=== PATIENT | female | born 1995 | race Hispanic/Latino ===

== ENCOUNTER 2019-05-14 08:44 | Emergency (ER) | payer OTHER ==
[2019-05-14 09:38] LABS: Hematocrit 47.2 % (30.3-42.9); Hemoglobin 16.1 gm/dl (10.1-14.3); Mean Corpuscular HGB Conc 34 % (30-34); Mean Corpuscular Volume 88 fl (79-97); Platelet Count 203 K/mm3 (140-440); Red Blood Count 5.37 M/mm3 (3.65-5.03); Red Cell Distribution Width 14.5 % (13.2-15.2)
[2019-05-14 09:47] LABS: Amphetamine Screen,Urine PRESUMPTIVE NEGATIVE; Benzodiazepines Screen,Urine PRESUMPTIVE NEGATIVE; Cocaine Screen,Urine PRESUMPTIVE NEGATIVE; Methadone Screen,Urine PRESUMPTIVE NEGATIVE; Opiate Screen,Urine PRESUMPTIVE NEGATIVE
[2019-05-14 09:56] LABS: BUN/Creatinine Ratio 10; Blood Urea Nitrogen 7 mg/dL (7-17); Calcium 9.8 mg/dL (8.4-10.2); Hemolysis Index 9
[2019-05-14 10:06] LABS: Cannabinoid Screen,Urine PRESUMPTIVE POSITIVE
[2019-05-14] MEDS ORDERED: HALDOL IM PRN (10:37)
[2019-05-14] MEDS ORDERED: ATIVAN IM PRN (10:37)
[2019-05-14] MEDS ORDERED: PROVENTIL IH PRN (10:37)
[2019-05-14] MEDS ORDERED: ZOFRAN ODT PO PRN (10:37)
[2019-05-14] MEDS ORDERED: TYLENOL PO PRN (10:37)
--- NOTE | 2019-05-14 10:39 | Emergency Department Report ---
ED General Adult HPI - General Chief complaint: Psych Stated complaint: SI Time Seen by Provider: 05/14/19 08:55 Source: patient, EMS (EMS documentation not available at the time of chart dictation), RN notes reviewed Mode of arrival: Ambulatory Limitations: No Limitations - History of Present Illness Initial comments: This is a 24-year-old patient, genetically female but identifies as male, prefers to be called " max" with a past history of psychiatric disease, not currently on any psychiatric medications, presents to the ER with a complaint of suicidality. The patient denies physical pain. The patient states that he was considering driving his car into oncoming traffic. The patient denies overdose. The patient denies hallucinations. The patient's symptoms are constant, painless, do not radiate anywhere, and he does not endorse any exacerbating or relieving factors. Patient denies urinary symptoms or abdominal pain. Patient denies additional complaints at this time. Patient states that he would like to get some help for his thoughts of suicidality. -: Gradual Severity scale (0 -10): 0 Quality: other Consistency: other Improves with: other Worsens with: other - Related Data Allergies Allergy/AdvReac Type Severity Reaction Status Date / Time amoxicillin [From Augmentin] Allergy Unknown Verified 05/14/19 09:00 cephalexin [From Keflex] Allergy Unknown Verified 05/14/19 09:00 clavulanic acid Allergy Unknown Verified 05/14/19 09:00 [From Augmentin] ED Review of Systems ROS: Stated complaint: SI Other details as noted in HPI Comment: All other systems reviewed and negative Psychiatric: depression, suicidal thoughts ED Past Medical Hx - Past Medical History Previous Medical History?: Yes Hx Asthma: Yes Additional medical history: Depression , anxiety - Surgical History Past Surgical History?: No - Social History Smoking Status: Never Smoker Substance Use Type: None ED Physical Exam - General Limitations: No Limitations General appearance: alert, in no apparent distress - Head Head exam: Present: atraumatic, normocephalic - Eye Eye exam: Present: normal appearance, EOMI. Absent: nystagmus - ENT ENT exam: Present: normal exam, normal orophraynx, mucous membranes moist, normal external ear exam - Neck Neck exam: Present: normal inspection, full ROM. Absent: tenderness, meningismus - Respiratory Respiratory exam: Present: normal lung sounds bilaterally. Absent: respiratory distress, wheezes, rales, rhonchi, stridor, chest wall tenderness - Cardiovascular Cardiovascular Exam: Present: regular rate, normal rhythm, normal heart sounds. Absent: bradycardia, tachycardia, irregular rhythm, systolic murmur, diastolic murmur, rubs, gallop - GI/Abdominal GI/Abdominal exam: Present: soft. Absent: distended, tenderness, guarding, rebound, rigid, pulsatile mass - Extremities Exam Extremities exam: Present: normal inspection, full ROM, other (2+ pulses noted in the bilateral upper, lower extremities. There is no long bony tenderness. The pelvis is stable. Muscular compartments are soft.). Absent: pedal edema, joint swelling, calf tenderness - Back Exam Back exam: Present: normal inspection, full ROM. Absent: tenderness, CVA tenderness (R), CVA tenderness (L), paraspinal tenderness, vertebral tenderness - Neurological Exam Neurological exam: Present: alert, oriented X3, normal gait, other (there is no facial droop. The tongue is midline. The extraocular movements are intact bilaterally. 5/ 5 strength bilateral upper, lower extremities. Sensation intact to light touch bilateral upper, lower extremities bilaterally. Sensation is intact to light touch in the bilateral V1, V2, V3 distribution.). Absent: motor sensory deficit - Psychiatric Psychiatric exam: Present: suicidal ideation - Skin Skin exam: Present: warm, dry, intact, normal color. Absent: rash ED Course Vital Signs 05/14/19 05/14/19 05/14/19 08:49 09:10 14:30 Temperature 98.5 F 98.5 F 98.8 F Pulse Rate 66 66 71 Respiratory 16 18 18 Rate Blood Pressure 119/79 Blood Pressure 119/79 122/71 [119/79] O2 Sat by Pulse 96 96 99 Oximetry ED Medical Decision Making - Lab Data Result diagrams: 05/14/19 09:23 05/14/19 09:23 Vital Signs 05/14/19 05/14/19 08:49 09:10 Temperature 98.5 F 98.5 F Pulse Rate 66 66 Respiratory 16 18 Rate Blood Pressure 119/79 Blood Pressure 119/79 [119/79] O2 Sat by Pulse 96 96 Oximetry Lab Results 05/14/19 05/14/19 05/14/19 Range/Units 09:08 09:23 09:23 WBC 5.9 (4.5-11.0) K/mm3 RBC 5.37 H (3.65-5.03) M/mm3 Hgb 16.1 H (10.1-14.3) gm/dl Hct 47.2 H (30.3-42.9) % MCV 88 (79-97) fl MCH 30 (28-32) pg MCHC 34 (30-34) % RDW 14.5 (13.2-15.2) % Plt Count 203 (140-440) K/mm3 Sodium 140 (137-145) mmol/L Potassium 3.9 (3.6-5.0) mmol/L Chloride 103.2 (98-107) mmol/L Carbon Dioxide 26 (22-30) mmol/L Anion Gap 15 mmol/L BUN 7 (7-17) mg/dL Creatinine 0.7 (0.7-1.2) mg/dL Estimated GFR > 60 ml/min BUN/Creatinine Ratio 10 % Glucose 111 H (65-100) mg/dL Calcium 9.8 (8.4-10.2) mg/dL Total Creatine Kinase 129 (30-135) units/L HCG, Quant (0-4) mIU/mL Salicylates (2.8-20.0) mg/dL Urine Opiates Screen Presumptive negative Urine Methadone Screen Presumptive negative Acetaminophen (10.0-30.0) ug/mL Ur Barbiturates Screen Presumptive negative Ur Phencyclidine Scrn Presumptive negative Ur Amphetamines Screen Presumptive negative U Benzodiazepines Scrn Presumptive negative Urine Cocaine Screen Presumptive negative U Marijuana (THC) Screen Presumptive positive Drugs of Abuse Note Disclamer Plasma/Serum Alcohol (0-0.07) % 05/14/19 05/14/19 05/14/19 Range/Units 09:23 09:23 09:23 WBC (4.5-11.0) K/mm3 RBC (3.65-5.03) M/mm3 Hgb (10.1-14.3) gm/dl Hct (30.3-42.9) % MCV (79-97) fl MCH (28-32) pg MCHC (30-34) % RDW (13.2-15.2) % Plt Count (140-440) K/mm3 Sodium (137-145) mmol/L Potassium (3.6-5.0) mmol/L Chloride (98-107) mmol/L Carbon Dioxide (22-30) mmol/L Anion Gap mmol/L BUN (7-17) mg/dL Creatinine (0.7-1.2) mg/dL Estimated GFR ml/min BUN/Creatinine Ratio % Glucose (65-100) mg/dL Calcium (8.4-10.2) mg/dL Total Creatine Kinase (30-135) units/L HCG, Quant < 2 (0-4) mIU/mL Salicylates < 0.3 L (2.8-20.0) mg/dL Urine Opiates Screen Urine Methadone Screen Acetaminophen < 5.0 L (10.0-30.0) ug/mL Ur Barbiturates Screen Ur Phencyclidine Scrn Ur Amphetamines Screen U Benzodiazepines Scrn Urine Cocaine Screen U Marijuana (THC) Screen Drugs of Abuse Note Plasma/Serum Alcohol (0-0.07) % 05/14/19 Range/Units 09:23 WBC (4.5-11.0) K/mm3 RBC (3.65-5.03) M/mm3 Hgb (10.1-14.3) gm/dl Hct (30.3-42.9) % MCV (79-97) fl MCH (28-32) pg MCHC (30-34) % RDW (13.2-15.2) % Plt Count (140-440) K/mm3 Sodium (137-145) mmol/L Potassium (3.6-5.0) mmol/L Chloride (98-107) mmol/L Carbon Dioxide (22-30) mmol/L Anion Gap mmol/L BUN (7-17) mg/dL Creatinine (0.7-1.2) mg/dL Estimated GFR ml/min BUN/Creatinine Ratio % Glucose (65-100) mg/dL Calcium (8.4-10.2) mg/dL Total Creatine Kinase (30-135) units/L HCG, Quant (0-4) mIU/mL Salicylates (2.8-20.0) mg/dL Urine Opiates Screen Urine Methadone Screen Acetaminophen (10.0-30.0) ug/mL Ur Barbiturates Screen Ur Phencyclidine Scrn Ur Amphetamines Screen U Benzodiazepines Scrn Urine Cocaine Screen U Marijuana (THC) Screen Drugs of Abuse Note Plasma/Serum Alcohol < 0.01 (0-0.07) % - Medical Decision Making Differential diagnosis, including but not limited to: Mood disorder, suicidality, medical clearance for psychiatric placement Assessment and plan: 24-year-old patient who endorses suicidality with plan to drive into oncoming traffic. The patient is afebrile with reassuring vital signs, and has not endorsed any acute medical complaints. The patient's physical exam is unremarkable. Vital signs, laboratory studies unremarkable. Patient placed on a 1013. Psychiatric consultation has been requested. Explained significance of 1013 to patient, who verbalizes understanding. At this point in time, the patient does not appear to have an acute medical contraindication to psychiatric admission, evaluation, consultation and placement at this time. Critical care attestation.: If time is entered above; I have spent that time in minutes in the direct care of this critically ill patient, excluding procedure time. ED Disposition Clinical Impression: Medical clearance for psychiatric admission Disposition: [id number]/TX-65 PSY HOSP/PSY UNIT Is pt being admited?: No Does the pt Need Aspirin: No Condition: Stable Referrals: ALYSHA CABALLERO MD [Primary Care Provider] - 3-5 Days
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
[2019-05-14] MEDS: VISTARIL PO SCH ×2 (15:00→22:52)
[2019-05-14] MEDS: PROzac PO SCH (15:00)
[2019-05-15 10:28] LABS: Bacteria,Urine 1+ /HPF (Negative); Bilirubin,Urine NEG (Negative); Blood,Urine NEG (Negative); Color,Urine Straw (Yellow); Protein,Urine <15 mg/dL mg/dL (Negative); Urobilinogen,Urine < 2.0 mg/dL (<2.0)
[2019-05-15] MEDS: PROzac PO SCH (11:00)
[2019-05-15] MEDS: VISTARIL PO SCH ×2 (11:00→21:58)
--- NOTE | 2019-05-15 11:38 | Progress Note ---
Subjective - Reason for Consult Consult date: 05/15/19 Reason for consult: Psychiatry Follow-up - Chief Complaint Chief complaint: "I must get better"' 24 y.o. white female who identify as a male presented to the ER for SI's. The patient was calm and cooperative during the assessment. She stated that she must get better and decide on goals for her life. She stated that it's difficult for her to be "mentally stable" when she do not have direction. She stated that her priority is to figure out her direction in life and continue therapy. She stated that her father flew in from [place] and he plan to stay in town until her discharge. She stated that they have a good relationship. She denies HI's and AVH's. When asked about being suicidal, she stated, "I feel better." She denies any side effects from her medication. Mental Status Exam - Vital signs Last Vital Signs Temp 97.7 F 05/15/19 01:55 Pulse 60 05/15/19 01:55 Resp 14 05/15/19 01:55 BP 110/64 05/15/19 01:55 Pulse Ox 98 05/15/19 01:55 - Exam Narrative exam: MSE: Appearance: calm, cooperative Behavior: regular eye contact Speech: regular rate and tone Mood: "okay" Affect: congruent to mood Thought Process: circumstantial Thought Content: denies HI's and AVH's Motor Activity: ambulatory Cognition: A/O x3 Insight: fair Judgment: variable Assessment and Plan Impression; MDD. Hx of Anxiety DO. Cannabis Use DO. Today the patient was calm and cooperative during the assessment. DDx: Substance Induced Mood DO Recommendation/Plan: Continue 1013 and gather collateral information. Continue Prozac 20 mg PO daily for depression/anxiety, and Vistaril 25 mg PO BID for anxiety. Discussed possible suicidality/medication induced javed with the patient reference Prozac, she verbalized understanding. Dispo: The patient was referred to inpatient psy services. Staffed with Dr Bryatn Prajapati.
--- NOTE | 2019-05-15 13:05 | Consultation ---
History of Present Illness - Reason for Consult Consult date: 05/15/19 Reason for consult: Mental Health Evaluation - Chief Complaint Chief complaint: "I must get better"' 24 y.o. white female who identify as a male presented to the ER for SI's. The patient was calm and cooperative during the assessment. She stated that she must get better and decide on goals for her life. She stated that it's difficult for her to be "mentally stable" when she do not have direction. She stated that her priority is to figur her direction and continue therapy. She stated that her father flew in from [place] and he plan to stay in town until her discharge. She stated that they have a good relationship. She denies SI/HI's and AVH's. She denies any side effects from her medication. Medications and Allergies Allergies Allergy/AdvReac Type Severity Reaction Status Date / Time amoxicillin [From Augmentin] Allergy Unknown Verified 05/14/19 09:00 cephalexin [From Keflex] Allergy Unknown Verified 05/14/19 09:00 clavulanic acid Allergy Unknown Verified 05/14/19 09:00 [From Augmentin] Active Meds: Active Medications Acetaminophen (Tylenol) 650 mg PO Q6HR PRN PRN Reason: Pain Albuterol (Proventil) 2.5 mg IH Q4HR PRN PRN Reason: Wheezing Fluoxetine HCl (Prozac) 20 mg PO DAILY [facility] Last Admin: 05/15/19 11:00 Dose: 20 mg Documented by: Hydroxyzine Pamoate (Vistaril) 25 mg PO BID [facility] Last Admin: 05/15/19 11:00 Dose: 25 mg Documented by: Lorazepam (Ativan) 2 mg IM Q4HR PRN PRN Reason: Agitation Ondansetron HCl (Zofran Odt) 4 mg PO Q6HR PRN PRN Reason: Nausea Mental Status Exam - Vital signs Last Vital Signs Temp 97.7 F 05/15/19 01:55 Pulse 60 05/15/19 01:55 Resp 14 05/15/19 01:55 BP 110/64 05/15/19 01:55 Pulse Ox 98 05/15/19 01:55 Results Result Diagrams: 05/14/19 09:23 05/14/19 09:23 All other labs normal.
[2019-05-15] MEDS ORDERED: IBUPROFEN PO ONE (18:52)
[2019-05-16 07:56] VITALS: BP 121/75
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
[2019-05-16] MEDS: VISTARIL PO SCH (10:34)
[2019-05-16] MEDS: PROzac PO SCH (10:34)
== END 2019-05-16 11:33 | disposition home or self-care (01) ==
LOC: EEVIPCON 08:44 → ED 08:44
DX: F32.9 Major depressive disorder, single episode, unspecified (principal); F41.9 Anxiety disorder, unspecified; J45.909 Unspecified asthma, uncomplicated; F12.10 Cannabis abuse, uncomplicated; Z88.1 Allergy status to other antibiotic agents
CPT/HCPCS: 36415; 80048; 80307; 80320; 81001; 82550; 84702; 85027; G0480; Q0177